=== PATIENT | female | born 1965 | race Caucasian/White ===

== ENCOUNTER 2024-01-25 11:21 | Outpatient (OUT) | payer OTHER, SELFPAY ==
--- NOTE | 2024-01-25 | XR_ITS ---
The [address] [address] Patient Name: TIM COSTA MRN: [id number] date: 1965 Sex: F Assigned Patient Location: [facility] Current Patient Location: [facility] Accession/Order Number: [id number] Exam Date: 01/25/2024 11:35 Report Date: 01/25/2024 11:58 At the request of: IRMA IQBAL Procedure: XR chest 2V EXAMINATION: XR ribs BI 3V, XR chest 2V HISTORY: RIB CONTUSION, RIGHT, INITIAL ENCOUNTER COMPARISON: No relevant comparison available. FINDINGS: LUNGS: No significant pulmonary parenchymal abnormalities. PLEURA: No pneumothorax, effusion, or pleural thickening. MEDIASTINUM: No visible mass or adenopathy. CARDIAC: No cardiomegaly or cardiac silhouette abnormality. RIBS: Normal. No significant arthropathy or acute abnormality. OTHER: Negative. XR/XR chest 2V IMPRESSION: 1. No acute cardiopulmonary process. 2. No appreciable right rib abnormality. Electronically authenticated by: OBDULIA MONTALVO Date: 01/25/2024 11:58
--- NOTE | 2024-01-25 | XR_ITS ---
The [address] [address] Patient Name: TIM COSTA MRN: [id number] date: 1965 Sex: F Assigned Patient Location: [facility] Current Patient Location: [facility] Accession/Order Number: [id number] Exam Date: 01/25/2024 11:35 Report Date: 01/25/2024 11:58 At the request of: IRMA IQBAL Procedure: XR ribs BI 3V EXAMINATION: XR ribs BI 3V, XR chest 2V HISTORY: RIB CONTUSION, RIGHT, INITIAL ENCOUNTER COMPARISON: No relevant comparison available. FINDINGS: LUNGS: No significant pulmonary parenchymal abnormalities. PLEURA: No pneumothorax, effusion, or pleural thickening. MEDIASTINUM: No visible mass or adenopathy. CARDIAC: No cardiomegaly or cardiac silhouette abnormality. RIBS: Normal. No significant arthropathy or acute abnormality. OTHER: Negative. XR/XR ribs BI 3V IMPRESSION: 1. No acute cardiopulmonary process. 2. No appreciable right rib abnormality. Electronically authenticated by: OBDULIA MONTALVO Date: 01/25/2024 11:58
== END 2024-01-25 11:22 | disposition home or self-care (01) ==
LOC: RAD 11:24
PROVIDERS: PCP Family Medicine; Visit Provider Family Medicine
DX: S20.211A Contusion of right front wall of thorax, initial encounter (principal)
CPT/HCPCS: 71046; 71110

== ENCOUNTER 2024-09-26 10:17 | Outpatient (OUT) | payer OTHER, SELFPAY ==
--- OUTSIDE RECORDS SUMMARY | 2024-01-25 06:45 | XMS_ITS ---
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 Ordering Physician: Irma Iqbal M.D. Date of Service: 01/25/24 Procedure(s): XR ribs BI 3V Accession Number(s): [id number] cc: Irma Iqbal M.D. [place] [address] Patient Name: CECILE HOPSON MRN: [id number] date: 1965 Sex: F Assigned Patient Location: RAD Current Patient Location: RAD Accession/Order Number: [id number] Exam Date: 01/25/2024 11:35 Report Date: 01/25/2024 11:58 At the request of: IRMA IQBAL Procedure: XR ribs BI 3V EXAMINATION: XR ribs BI 3V, XR chest 2V HISTORY: RIB CONTUSION, RIGHT, INITIAL ENCOUNTER COMPARISON: No relevant comparison available. FINDINGS: LUNGS: No significant pulmonary parenchymal abnormalities. PLEURA: No pneumothorax, effusion, or pleural thickening. MEDIASTINUM: No visible mass or adenopathy. CARDIAC: No cardiomegaly or cardiac silhouette abnormality. RIBS: Normal. No significant arthropathy or acute abnormality. OTHER: Negative. XR/XR ribs BI 3V IMPRESSION: 1. No acute cardiopulmonary process. 2. No appreciable right rib abnormality. Electronically authenticated by: RAUL ROSAS Date: 01/25/2024 11:58 Dictated By: Raul Rosas M.D. Signed By: 01/25/24 1201 DD/ 1158 TD/TT: Film Masker: [place] [address] XRay Report Signed Patient: CECILE HOPSON MR#: [id number] : 1965 Acct:[id number] Age/Sex: 58 / F ADM Date: 01/25/24 Loc: RAD Attending Dr: Irma Iqbal M.D. Ordering Physician: Irma Iqbal M.D. Date of Service: 01/25/24 Procedure(s): XR ribs BI 3V Accession Number(s): [id number] cc: Irma Iqbal M.D. The [place] [address] Patient Name: CECILE HOPSON MRN: [id number] date: 1965 Sex: F Assigned Patient Location: [facility] Current Patient Location: [facility] Accession/Order Numb er: [id number] Exam Date: 11:35 Report Date: 01/25/2024 11:58 At the request of: IRMA IQBAL Procedure: XR ribs BI 3V EXAMINATION: XR ribs BI 3V, XR chest 2V HISTORY: RIB CONTUSI ON, RIGHT, INITIAL ENCOUNTER COMPARISON: No relev ant comparison available. FINDINGS: LUNGS: No significan t pulmonary parenchymal abnormalities. PLEURA: No pneumotho rax, effusion, or pleural thickening. MEDIASTINUM: No visi ble mass or adenopathy. CARDIAC: No cardiome chica or cardiac silhouette abnormality. RIBS: Normal. No sig nificant arthropathy or acute abnormality. OTHER: Negative. X R/XR ribs BI 3V IMPRESSION: 1. No acute cardiopu lmonary process. 2. No appreciable ri ght rib abnormality. Electronically authe nticated by: RAUL ROSAS Date: 01/25/2024 11:58 Dictated By: Raul Rosas M.D. Signed By: 01/25/24 1201 DD/ 1158 TD/TT: Film Masker: REASON FOR VISIT Fell in bathtub 6 days ago. Initially had pain to right rib area. Pain started getting worse last night. Medications Medication SIG (Take, Route, Fr equency, Duration) Notes Start Date End Date Status Relpax 40 MG 1 tablet Orally Once a day for 1 day(s) Active Lisinopril 20 MG 1 tablet Orally Once a day for 30 days Active Adipex-P 37.5 MG 1 tablet before paulette kfast Orally Once a day for 30 days 01/25/2024 Active Social History Tobacco Use: Social History Observation Description Date Details (start date - stop date) Never Smoker NA - NA Tobacco Use/Smoking Question Answer Notes Patient is a nonsmoker AUDIT-C (Standard) Question Answer Notes Did you have a drink containing alcohol in the p ast year? No Points 0 Interpretation Negative Problems Problem Type SNOMED Code ICD Code Onset Dates Problem Status W/U Status Risk Notes Problem Contusion of chest (27575880) Rib contusion, right, initial encounter (S20.211A) Active confirmed Vital Signs Blood pressure systolic 138 mm Hg 01/25/20 24 Blood pressure diastolic 86 mm Hg 024 Height 67 in 01/25/2024 Weight 229.8 lbs 01/25/2024 BMI 35.99 kg/m2 01/25/2024 Encounters Encounter Location Date Provider Diagnosis [facility] [address] [place] [address] 01/25/2024 Jamshid Hoy Rib contusion, right , initial encounter S20.211A Assessments Encounter Date Diagnosis (ICD Code) Assessment Notes Treatment Notes Treatment Clinical Notes Section Notes 01/25/2024 Rib contusion, right, initial encounter (ICD-10 - S20.211A) Plan Of Treatment Medication Medication Name Sig Start Date Stop Date Notes Adipex-P 37.5 MG 1 tablet before paulette kfast Orally Once a day for 30 days 01/25/2024 Pending Test Test Name Order Date XR CHEST 2 V 01/25/2024 Progress Notes * Cecile HOPSON LDOB:1965 (58 yo F)Acc No.[id number]:01/25/2024 Progress Note Patient: Cecile VALDEZ Provider: Humberto Iqbal ([facility]), :1965 A ge:58 Y S ex:Female Date:01/25/2024 Address:[address] [place], [place] [id number] Check In:10:29 AM ESTCheck O ut:11:01 AM EST Subjective: * Chief Complaints: * F ell in bathtub 6 days ago. Initially had pain to right rib area. Pain started getting worse last night. * HPI: G eneral: fell 6 days ago - had pain at the [facility] better - but now is worse with laying on it. * ROS: E ENT: hearing changes d enies. v isual changes d enies.?non-healing mouth sores d enies. s wollen glands or neck lumps d enies. h oarseness d enies. s ore throat d enies. d ifficulty swallowing d enies. n ose bleeds d enies. n kathleen congestion d enies. e ar ache d enies. e ar discharge?denies. r inging in ears d enies. l ight sensitivity d enies. e ye pain d enies. b lurring d enies. e ye irritation d enies. d ouble vision d enies.?vision loss d enies. G eneral/Constitutional: Sweats: D enies. F atigue d enies. S leep problems d enies. A norexia d enies. M alaise d enies. W eight loss d enies.?Fatigue or Weakness d enies. F ever or Chills d enies. C ardiovascular: Shortness of Breath w/lying flat d enies. L ightheadedness/dizziness d enies. C hest tightness/ heavy pressure d enies. S welling of legs, ankles, or feet d enies. W aking up with shortness of breath d enies. C hest pain denies. P alpitations d enies. W eight gain d enies. R espiratory: Chronic or frequent cough d enies. C oughing up blood?denies. D ifficulty breathing d enies. P roductive cough d enies. S noring?denies. S hortness of breath that awakens from sleep (PND) d enies. C hest pain d enies. S putum production d enies. W heezing d enies. M usculoskeletal: Joint pain d enies. J oint Fluid d enies. B ack pain d enies. K nee pain d enies. N lara pain d enies. J oint Stiffness d enies. M uscle cramps d enies. W eakness of muscles d enies. A rthritis d enies. M uscle aches d enies. P ain in shoulder(s) d enies. S wollen joints d enies. * Active Problem List K57.90 Diverticulosis Modified On:05/31/2022 Status:confirmed E66.3 Over weight Modified On:05/31/2022 Status:confirmed G47.00 Insomnia, unspecifie d type Modified On:05/31/2022 Status:confirmed M23.92 Internal derangement of left knee Modified On:05/31/2022 Status:confirmed I10 Hypertension Modified On:05/31/2022 Status:confirmed R53.83 Fatigue Modified On:05/31/2022 Status:confirmed J45.909 Asthmatic bronchitis Modified On:05/31/2022 Status:confirmed J01.11 Acute recurrent fron kaitlyn sinusitis Modified On:05/31/2022 Status:confirmed Z00.00 Well adult Modified On:05/31/2022U Status:confirmed M25.559 Hip pain Modified On:05/31/2022 Status:confirmed F41.9 Anxiety Modified On:05/31/2022 Status:confirmed G43.909 Migraine Modified On:05/31/2022 Status:confirmed M50.30 Degenerative disc di sease, cervical Modified On:05/31/2022 Status:confirmed J18.9 Pneumonia Modified On:05/31/2022 Status:confirmed H81.399 Peripheral vertigo, unspecified laterality Modified On:05/31/2022 Status:confirmed S20.211A Rib contusion, right , initial encounter Modified On:01/25/2024 Status:confirmed * Medical History: * Surgical History: C olonoscopy 03/26/2022 * Hospitalization/Major Diagno stic Procedure: * Family History: F ather: , diagnosed with Chronic kidney disease, unspecified. M other: , passed Mar 2022, diagnosed with Colon cancer. B rother(s): alive. 1 brother(s) . . * Social History: T obacco Use: T obacco Use/Smoking P atient is a n onsmoker D rug/Alcohol: A NATHANAEL-C (Standard) D id you have a drink containing alcohol in the past year? N o P oints 0 I nterpretation N egative * Medications: T akingAdipex-P(Phentermine HCl) 37.5 MG Tablet 1 tablet before breakfast Orally Once a day Lisinopril 20 MG Tablet 1 tablet Orally Once a day Relpax(Eletriptan Hydrobromide) 40 MG Tablet 1 tablet Orally Once a day Taking Adipex- P(Phentermine HCl) 37.5 MG Tablet 1 tablet before breakfast Orally Once a day Taking Lisinopril 20 MG Tablet 1 tablet Orally Once a day Taking Relpax(Eletriptan Hydrobromide) 40 MG Tablet 1 tablet Orally Once a day DiscontinuedAdipex-P(Phentermine HCl) 37.5 MG Tablet 1 tablet before breakfast Orally Once a day traMADol HCl 50 MG Tablet take 1 -2 tablets Orally QID-PRN , Notes to Pharmacist: Orally dx M50.30Medication List reviewed and reconciled with the patientDiscontinued Adipex-P(Phentermine HCl) 37.5 MG Tablet 1 tablet before breakfast Orally Once a day Discontinued traMADol HCl 50 MG Tablet take 1 -2 tablets Orally QID-PRN , Notes to Pharmacist: Orally dx M50.30Medication List reviewed and reconciled with the patient * Allergies: A spirin: jemma[Allergies Verified] Objective: * Vitals: W t:229.8lbs, Ht: 67 in, BP:138/86mm Hg, BMI:35.99Index, Ht-cm: 170.18 cm, Wt-k.24 kg. * Examination: P hysical Exam: GENERAL: w ell developed, well nourished, in no acute distress. HEAD: n ormocephalic/atraumatic. EYES: p upils equal, round and reactive to light, conjunctivae and sclerae normal. EARS: n o deformity or lesion of external ear, canals and TM appear normal bilaterally, TM's intact, not inflamed with normal light reflex, hearing grossly normal to conversational speech. NOSE: n o deformity, discharge, inflammation, or lesions.? MOUTH: m ucous membranes moist, normal oropharynx and posterior pharynx without lesions or exudates, tongue normal, dentition normal. NECK: n lara supple, no masses or palpable cervical nodes, trachea midline, thyroid without nodules, masses, tenderness, or enlargement. CHEST: n o chest wall deformity, no chest wall tenderness.? LUNGS: n ormal respiratory effort and clear to auscultation, no wheezes, rales, or rhonchi, good air exchange. CARDIO: r egular rate and rhythm, normal S1 and S2, nor murmur, rub, or gallop. PULSES: n ormal capillary refill. ABDOMEN: s oft, non-distended, non-tender, no masses. MUSCULOSKELETAL: n o deformity or scoliosis noted, normal range of motion, joints normal, no erythema, edema, effusion, or ecchymosis. EXTREMITY: n o clubbing, cyanosis, edema, or deformity with normal ROM in both upper and lower bilateral extremities. NEUROLOGIC: g rossly normal. SKIN: n o rashes, ulcerations, or suspicious lesions. LYMPH NODES: n o cervical adenopathy, nodes normal. MENTAL STATUS: a lert and oriented x3, normal mood and affect. Assessment: * Assessment: 1. R ib contusion, right, initial encounter - S20.A (Primary) Plan: * Treatment: ?Imaging: XR ribs BI 3V (Performed Date - 01/25/2024)* STAT * Procedure Codes: * Preventive Medicine: Screenings/Counseling: B RI ACTION PLAN Above Normal BMI Follow-up D ietary management education, guidance, and counseling See treatment section of progress note for complete details of management plan. * * Sign off status: Completed Visit Status: C HK (Check Out) true * Provider: Humberto Iqbal ([facility])MD Date: 03/27/2023 Generated for Printi ng/Faxing/eTransmitting on: 0 09/26/2024 10:21 AM EDT History and Physical Notes * HPI (History of Present Illness) Category Sub-Category Detail Notes Category Not es General fell 6 days ago - had pain at the [facility] better - but now is worse with laying on it Examination Category Sub-Category Detail Notes Category Not es Physical Exam GENERAL: well developed, well nourished, in no acute distress HEAD: normocephalic/atraum atic EYES: pupils equal, round and reactive to light, conjunctivae and sclerae normal EARS: no deformity or lesi on of external ear, canals and TM appear normal bilaterally, TM's intact, not inflamed with normal light reflex, hearing grossly normal to conversational speech NOSE: no deformity, discha rge, inflammation, or lesions MOUTH: mucous membranes rigoberto st, normal oropharynx and posterior pharynx without lesions or exudates, tongue normal, dentition normal NECK: neck supple, no mass es or palpable cervical nodes, trachea midline, thyroid without nodules, masses, tenderness, or enlargement CHEST: no chest wall deform ity, no chest wall tenderness LUNGS: normal respiratory e ffort and clear to auscultation, no wheezes, rales, or rhonchi, good air exchange CARDIO: regular rate and rhy thm, normal S1 and S2, nor murmur, rub, or gallop PULSES: normal capillary ref ill ABDOMEN: soft, non-distended, non-tender, no masses RECTAL: MUSCULOSKELETAL: no deformity or scol iosis noted, normal range of motion, joints normal, no erythema, edema, effusion, or ecchymosis EXTREMITY: no clubbing, cyanosi s, edema, or deformity with normal ROM in both upper and lower bilateral extremities NEUROLOGIC: grossly normal SKIN: no rashes, ulceratio ns, or suspicious lesions LYMPH NODES: no cervical adenopat hy, nodes normal MENTAL STATUS: alert and oriented x 3, normal mood and affect
--- OUTSIDE RECORDS SUMMARY | 2024-09-26 05:30 | XMS_ITS ---
Author Organization The [facility] in [place] Address [address] [place] [address] Care Team Providers Care Video Tape Editor Name Role Phone Jamshid Ontiveros Primary Care Provider [phone] Allergies Allergen (clinical drug ingredient) Drug/Non Drug Allergy documented on EMR Reaction Allergy Type Onset Date Status aspirin Aspirin vomiting Drug Allergy Active REASON FOR VISIT Presents to office with for wellness for work, Also asking to restart Adipex Medications Medication SIG (Take, Route, Fr equency, Duration) Notes Start Date End Date Status Relpax 40 MG 1 tablet Orally Once a day for 1 day(s) Active Lisinopril 20 MG 1 tablet Orally Once a day for 30 days Active Adipex-P 37.5 MG 1 tablet before paulette kfast Orally Once a day for 30 days 01/25/2024 No t-Taking Adipex-P 37.5 MG 1 tablet before paulette kfast Orally Once a day 09/26/2024 Active Social History Tobacco Use: Social History [...] Problem Status W/U Status Risk Notes Problem Obesity (E66.9) Active confirmed Vital Signs Blood pressure systolic 144 mm Hg 09/27/19 25 Blood pressure diastolic 86 mm Hg 025 Height 67 in 09/26/2024 Weight 219 lbs 09/26/2024 BMI 34.3 kg/m2 09/26/2024 Encounters Encounter Location Date Provider Diagnosis [facility] [address] [facility] [place] [address] 09/26/2024 Jamshid Ontiveros Well adult Z00.00 an d Obesity E66.9 Assessments Encounter Date Diagnosis (ICD Code) Assessment Notes Treatment Notes Treatment Clinical Notes Section Notes 09/26/2024 Well adult (ICD-10 - Z00.00) 09/26/2024 Obesity (ICD-10 - E66.9) Plan Of Treatment Medication Medication Name Sig Start Date Stop Date Notes Adipex-P 37.5 MG 1 tablet before paulette kfast Orally Once a day 09/26/2024 Pending Test Test Name Order Date HEMOGLOBIN A1C (GLYCO) 09/26/2024 IRON, TOTAL 09/26/2024 LIPID PANEL (CHOL/TRIG/HDL/LDL) 09/27/19 25 Insulin Level 09/26/2024 THYROID PANEL (T4/TSH/FREE T3) 5 MM screening mammo BI 09/26/2024 CMP (COMP MET VALENCIA) w/eGFR CKD-EPI 2024 CBC WITH DIFF 09/26/2024 Progress Notes * Cecile HOPSON LDOB:1965 (58 yo F)Acc No.[id number]:09/26/2024 UNLOCKED PROGRESS NOTE Progress Note Patient: Cecile VALDEZ Provider: Humberto Ontiveros ([facility])MD :1965 A ge:58 Y S ex:Female Date:09/26/2024 Address:[address] [place], [place] [id number] Check In:09:28 AM ESTCheck O ut:10:06 AM EST Subjective: * Chief Complaints: * 1 . Presents to office with for wellness for work. 2. Also asking to restart Adipex. * HPI: D epression Screening: PHQ-2 (2015 Edition) L ittle interest or pleasure in doing things??Not at all F eeling down, depressed, or hopeless? N ot at all T otal Score 0 disucsed need for weight loss - wiilling to try the adipex. * ROS: E ENT: hearing changes d [...] enies. S wollen joints d enies. * Medical History: D iverticulosis, Over weight, Insomnia, unspecified type, Internal derangement of left knee, Hypertension, Fatigue, Asthmatic bronchitis, Acute recurrent frontal sinusitis, Well adult, Hip pain, Anxiety, Migraine, Degenerative disc disease, cervical, Pneumonia, Peripheral vertigo, unspecified laterality. * Surgical History: C olonoscopy 03/26/2022. * Family History: F ather: , diagnosed [...] I nterpretation N egative * Medications: T aking Lisinopril 20 MG Tablet 1 tablet Orally Once a day , Taking Relpax(Eletriptan Hydrobromide) 40 MG Tablet 1 tablet Orally Once a day , Not-Taking/PRN Adipex-P(Phentermine HCl) 37.5 MG Tablet 1 tablet before breakfast Orally Once a day , Medication List reviewed and reconciled with the patient * Allergies: A spirin: vomiting. Objective: * Vitals: W t:219lbs, Ht: 67 in, BP:144/86mm Hg, BMI:34.3Index, Ht-cm: 170.18 cm, Wt-k.34 kg. * Examination: P hysical Exam: GENERAL: [...] mood and affect. Assessment: * Assessment: 1. W ell adult - Z00.00 (Primary) 2 . O besity - E66.9 Plan: * Treatment: 2. O besity Start Adipex-P Tablet, 37.5 MG, 1 tablet before breakfast, Orally, Once a day, 30. * Preventive Medicine: Screenings/Counseling: B MA ACTION PLAN Above Normal BMI Follow-up D ietary management education, guidance, and counseling See treatment section of progress note for complete details of management plan. * * Electronic signature of Jamshid Ontiveros MD, [phone] on 09/26/2024 at 10:21 AM EDT Sign off status: Pending Visit Status: C HK (Check Out) * Provider: Humberto Ontiveros ([facility])MD Date: 09/26/2024 Generated for Josselyn brannon/Judie/eTransmitting on: 0 09/26/2024 10:21 AM EDT History and Physical Notes * HPI (History of Present Illness) Category Sub-Category Detail Notes Category Not es Depression Screening PHQ-2 (2015 Edition) Little interest or pleasure in doing things?: Not at all disucsed need for weight loss - wiilling to try the adipex Feeling down, depressed, or hopeless?: N ot at all Total Score: 0 Examination Category Sub-Category Detail Notes Category Not [...]
--- OUTSIDE RECORDS SUMMARY | 2024-09-26 10:21 | XMS_ITS | Clinical Summary ---
Author Organization [email or web address] [facility] tem Address [id number] [address] [place] [address] Care Team Providers Care Commodity Buyer Name Role Phone Naren Ontiveros MD Primary Care Provider [phone] Allergies Active Allergy Reactions Criticality Noted Date Comments Aspirin Vomiting 12/26/2016 Medications traMADol (ULTRAM) 50 mg tablet Take 1 tablet (50 mg total) by mouth every 6 (six) hours as needed for pain. Active pantoprazole (PROTONIX) 40 mg EC tablet Take 1 tablet (40 mg total) by mouth in the morning. Active zolpidem (AMBIEN) 10 mg tablet Take 1 tablet (10 mg total) by mouth nightly as needed for sleep. Active diclofenac (VOLTAREN) 75 mg EC tablet Take 1 tablet (75 mg total) by mouth in the morning and 1 tablet (75 mg total) before bedtime. Active phentermine 37.5 MG capsule Take 1 capsule (37.5 mg total) by mouth every morning. Takes 1/2 tablet daily Active doxepin (SINEquan) 10 mg capsule Take 2 capsules (20 mg total) by mouth nightly. Active lisinopriL (PRINIVIL,ZESTRIL) 10 mg tablet Take 1 tablet (10 mg total) by mouth in the morning. Active metoclopramide (REGLAN) 10 mg tablet Take 1 tablet (10 mg total) by mouth every 6 (six) hours as needed (nausea). 30 tablet 3 Active ondansetron ODT (ZOFRAN ODT) 4 mg disintegrating tablet Dissolve 1 tablet (4 mg total) on tongue every 8 (eight) hours as needed for nausea for up to 25 doses. 25 tablet Active Social History Tobacco Use Types Packs/Day Years Used Date Smoking Tobacco: Never Smokeless Tobacco: Never Tobacco Cessation:Counseling Given: Not Answered Alcohol Use Standard Drinks/Week Comments No 0 (1 standard drink = 0.6 oz pur e alcohol) Childcare Answer Date Recorded Childcare Unknown 08/04/2018 Employment Answer Date Recorded Employment Unknown 08/04/2018 Hunger Screening Answer Date Recorded Within the past 12 months we worried whether our food would run out before we got money to buy more. Never True 06/01/2022 Within the past 12 months th e food we bought just didn't last and we didn't have money to get more. Never True 06/01/2022 Purpose - Life Answer Date Recorded Purpose and direction in life Unknown Comments No Sex and Gender Information Value Date Recorded Sex Assigned at Not on file Legal Sex Female 11:24 AM EDT Gender Identity Not on file Sexual Orientation Not on file Last Filed Vital Signs Vital Sign Reading Time Taken Comments Blood Pressure 176/105 06/01/2022 6:29 PM EDT Pulse 84 06/01/2022 6:29 PM EDT Temperature 36.6 C (97.9 F) 06/01/2022 6:29 PM EDT Respiratory Rate 20 06/01/2022 6:29 PM EDT Oxygen Saturation 100% 06/01/2022 6:29 PM EDT Inhaled Oxygen Concentration - - Weight 106.6 kg (235 lb) 06/01/2022 6:29 PM EDT Height 165.1 cm (5' 5 ) 06/01/2022 6:29 PM EDT Body Mass Index 39.11 06/01/2022 6:29 PM EDT Plan of Treatment Health Maintenance Due Date Last Done Comments Depression Screening 1978 Tobacco Screening 1978 DTaP,Tdap and Td Vaccines (1 - Tdap) 1985 Pap Smear 11/14/1987 Zoster (Shingles) Vaccine (1 of 2) 2016 Adult BMI Screening 06/02/2023 06/01/2022 COVID-19 Vaccine (3 - season) 10/25/202302/2020, 12/10/2020 Influenza Vaccine 10/24/2024 Medical Devices Not on file Insurance [employer] PPO Care Teams Commodity Buyer Relationship Specialty Start Date End Date Naren Ontiveros MD PCP - General 12/26/16
--- OUTSIDE RECORDS SUMMARY | 2024-09-26 10:21 | XMS_ITS | Patient Health Record ---
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 Ordering Physician: Irma Iqbal M.D. Date of Service: 01/25/24 Procedure(s): XR chest 2V Accession Number(s): [id number] cc: Irma Iqbal M.D. [place] [id number] Patient Name: CECILE HOPSON MRN: [id number] date: 1965 Sex: F Assigned Patient Location: RAD Current Patient Location: RAD Accession/Order Number: [id number] Exam Date: 01/25/2024 11:35 Report Date: 01/25/2024 11:58 At the request of: IRMA IQBAL Procedure: XR chest 2V EXAMINATION: XR ribs BI 3V, XR chest 2V HISTORY: RIB CONTUSION, RIGHT, INITIAL ENCOUNTER COMPARISON: No relevant comparison available. FINDINGS: LUNGS: No significant pulmonary parenchymal abnormalities. PLEURA: No pneumothorax, effusion, or pleural thickening. MEDIASTINUM: No visible mass or adenopathy. CARDIAC: No cardiomegaly or cardiac silhouette abnormality. RIBS: Normal. No significant arthropathy or acute abnormality. OTHER: Negative. XR/XR chest 2V IMPRESSION: 1. No acute cardiopulmonary process. 2. No appreciable right rib abnormality. Electronically authenticated by: OBDULIA ROSAS Date: 01/25/2024 11:58 Dictated By: Obdulia Rosas M.D. Signed By: 01/25/24 1201 DD/ 1158 TD/TT: Child Nurse: [place] [address] XRay Report Signed Patient: CECILE HOPSON MR#: [id number] : 1965 Acct:[id number] Age/Sex: 58 / F ADM Date: 01/25/24 Loc: RAD Attending Dr: Irma Iqbal M.D. Ordering Physician: Irma Iqbal M.D. Date of Service: 01/25/24 Procedure(s): XR chest 2V Accession Number(s): [id number] cc: Irma Iqbal M.D. [place] [address] Patient Name: CECILE HOPSON MRN: [id number] date: 1965 Sex: F Assigned Patient Location: [facility] Current Patient Location: [facility] Accession/Order Numb er: [id number] Exam Date: 11:35 Report Date: 01/25/2024 11:58 At the request of: IRMA IQBAL Procedure: XR chest 2V EXAMINATION: XR ribs BI 3V, XR chest [...] or acute abnormality. OTHER: Negative. X R/XR chest 2V IMPRESSION: 1. No acute cardiopu lmonary process. 2. No appreciable ri ght rib abnormality. Electronically authe nticated by: OBDULIA ROSAS Date: 01/25/2024 11:58 Dictated By: Obdulia Rosas M.D. Signed By: 01/25/24 1201 DD/ 1158 TD/TT: Child Nurse: XR ribs BI 3V Reviewed date:01/25/2024 01:46:08 PM Interpretation: Performing Lab: Notes/Report: Source Facility: [place] [address] XRay Report Signed Patient: CECILE HOPSON MR#: [id number] : 1965 Acct:[id number] Age/Sex: 58 / F ADM Date: 01/25/24 Loc: RAD Attending Dr: Irma Iqbal M.D. Ordering Physician: Irma Iqbal M.D. Date of Service: 01/25/24 Procedure(s): XR ribs BI 3V Accession Number(s): [id number] cc: Irma Iqbal M.D. [place] [address] Patient Name: CECILE HOPSON MRN: [id number] date: 1965 Sex: F Assigned Patient Location: [facility] Current Patient Location: [facility] Accession/Order Number: [id number] Exam Date: 01/25/2024 11:35 Report Date: 01/25/2024 [...] appreciable right rib abnormality. Electronically authenticated by: OBDULIA ROSAS Date: 01/25/2024 11:58 Dictated By: Obdulia Rosas M.D. Signed By: 01/25/24 1201 DD/ 1158 TD/TT: Child Nurse: [place] [address] XRay Report Signed Patient: CECILE HOPSON MR#: [id number] : 1965 Acct:[id number] Age/Sex: 58 / F ADM Date: 01/25/24 Loc: RAD Attending Dr: Irma Iqbal M.D. Ordering Physician: Irma Iqbal M.D. Date of Service: 01/25/24 Procedure(s): XR ribs BI 3V Accession Number(s): [id number] cc: Irma Iqbal M.D. [place] [id number] Patient Name: CECILE HOPSON MRN: [id number] date: 1965 Sex: F Assigned Patient Location: [facility] Current Patient Location: [facility] Accession/Order Numb er: [id number] Exam Date: 11:35 Report Date: 01/25/2024 11:58 [...] ght rib abnormality. Electronically authe nticated by: OBDULIA ROSAS Date: 01/25/2024 11:58 Dictated By: Obdulia Rosas M.D. Signed By: 01/25/24 1201 DD/ 1158 TD/TT: Child Nurse: Reason For Referral No Information Medications Medication SIG (Take, Route, Fr equency, [...] Question Answer Notes Patient is a nonsmoker Alcohol Screen (Audit-C) Question Answer Notes Did you have a drink containing alcohol in the p ast year? No Points 0 Interpretation Negative AUDIT-C (Standard) Question Answer Notes Did you have a drink containing alcohol in the p ast year? No Points 0 Interpretation Negative Problems Problem Type SNOMED Code ICD Code Onset Dates Problem Status W/U Status Risk Notes Problem Acute frontal sinusitis (92104581) Acute recurrent frontal sinusitis (J01.11) Active confirmed Problem Fatigue (41608054) Fatigue (R53.83) Active conf irmed Problem Hypertension (67336093) Hypertension (I10) Active confirmed Problem Obesity (826354693) Obesity (E66.9) Active conf irmed Problem Anxiety (49443363) Anxiety (F41.9) Active confi rmed Problem Pneumonia (486449288) Pneumonia (J18.9) Active confirmed Problem Hip pain (87017768) Hip pain (M25.559) Active confirmed Problem 854268358 Diverticulosis (K57.90) Active confirmed Problem Migraine (20895752) Migraine (G43.909) Active confirmed Problem Degeneration of cervical intervertebral disc (53690029) Degenerative disc disease, cervical (M50.30) Active confirmed Problem Well adult (536783972) Well adult (Z00.00) Active confirmed Problem 009339787 Over weight (E66.3) Active confirmed Problem Asthmatic bronchitis (981287524) Asthmatic bronchitis (J45.909) Active confirmed Problem 00754137975814828 Internal derangement of left knee (M23.92) Active confirmed Problem 113021038 Insomnia, unspecified type (G47.00) Active confirmed Problem Contusion of chest (96507062) Rib contusion, right, initial encounter (S20.211A) Active confirmed Problem Peripheral vertigo (24388802) Peripheral vertigo, unspecified laterality (H81.399) Active confirmed Vital Signs Blood pressure diastolic 86 mm Hg 09/26/2024 Height 67 in 09/26/2024 Blood pressure systolic 144 mm Hg 09/26/2024 Weight 219 lbs 09/26/2024 BMI 34.3 kg/m2 09/26/2024 Encounters Encounter Location Date Provider Diagnosis [address] [address] 01/25/2024 Jamshid Hoy [address] [address] 11/23/2023 Jamshid Hoy Internal derangement of left knee M23.92 and Hypertension I10 [address] [address] 01/25/2024 Jamshid Hoy Rib contusion, right , initial encounter S20.211A [address] [address] 09/26/2024 Jamshid Hoy Well adult Z00.00 an d Obesity E66.[address] [address] 10/02/2023 Jamshid Hoy Well adult Z00.00 Assessments Encounter Date Diagnosis (ICD Code) Assessment Notes Treatment Notes Treatment Clinical Notes Section Notes 10/02/2023 Well adult (ICD-10 - Z00.00) 11/23/2023 Internal derangement of left knee (ICD-10 - M23.92) 11/23/2023 Hypertension (ICD-10 - I10) 01/25/2024 Rib contusion, right, initial encounter (ICD-10 - S20.211A) 09/26/2024 Well adult (ICD-10 - Z00.00) 09/26/2024 Obesity (ICD-10 - E66.9) Plan Of Treatment Pending Test Test Name Order Date CMP (COMPLETE METABOLIC PANEL) 4 HEMOGLOBIN A1C (GLYCO) 10/02/2023 HEMOGLOBIN A1C (GLYCO) 09/26/2024 IRON, TOTAL 09/26/2024 IRON, TOTAL 10/02/2023 LIPID PANEL (CHOL/TRIG/HDL/LDL) 10/02/19 24 LIPID PANEL (CHOL/TRIG/HDL/LDL) 09/27/19 25 CBC WITH DIFF 10/02/2023 VITAMIN D, 25 LEVEL (TOTAL) 10/02/2023 Insulin Level 09/26/2024 Insulin Level 10/02/2023 XR CHEST 2 V 01/25/2024 THYROID PANEL (T4/TSH/FREE T3) 5 THYROID PANEL (T4/TSH/FREE T3) 4 MM screening mammo BI 10/02/2023 MM screening mammo BI 09/26/2024 CMP (COMP MET VALENCIA) w/eGFR CKD-EPI 2024 CBC WITH DIFF 09/26/2024 Insurance Providers Payer Name Payer Address Payer Phone Subscriber Number Group Number Insured Name Patient Relationship to Insured Coverage Start Date Coverage End Date [employer] [facility] [address] [place] [phone] [id number] Cecile Hopson Self - patient is the insured 2023 Medical (General) History Medical History History ICD Code Diverticulosis K57.90 Over weight E66.3 Insomnia, unspecified type G47.00 Internal derangement of left knee M23.92 Hypertension I10 Fatigue R53.83 Asthmatic bronchitis J45.909 Acute recurrent frontal sinusitis J01.11 Well adult Z00.00 Hip pain M25.559 Anxiety F41.9 Migraine G43.909 Degenerative disc disease, cervical M50. 30 Pneumonia J18.9 Peripheral vertigo, unspecified laterali ty H81.399 Surgical History Surgery Date(Month/Year) Colonoscopy 03/26/2022
--- OUTSIDE RECORDS SUMMARY | 2024-09-26 10:30 | XMS_ITS | CCD ---
Author Organization [facility] Care Team Providers Care Director Clinical Operations Name Role Phone Irma Ontiveros Primary Care Physician Melanie PAL Attending Unavailable Weston PROVIDER, Irma Referring Unavailabl e NILL, Melanie Marcelo Attending Unavailable Didiy PROVIDER, Irma Referring Unavailabl e NILL, Melanie Marcelo Attending Unavailable NILL, DR NAVARRO Admitting Unavailable NILL, DR NAVARRO Consulting Unavailable NILL, DR NAVARRO Attending Unavailable HOY, DR SOLIS Primary Care Unavailable EVIE JARAMILLO Consulting Unavailable ANNA ROSENTHAL Consulting Unavailable NILL, DR NAVARRO Admitting Unavailable NILL, DR NAVARRO Consulting Unavailable NILL, DR NAVARRO Attending Unavailable HOY, DR SOLIS Primary Care Unavailable HOY, DR SOLIS Admitting Unavailable HOY, DR SOLIS Primary Care Unavailable DIDIY, DR SOLIS Attending Unavailable JI BELLO Consulting Unavailable WESTON, DR SOLIS Primary Care Unavailable QUITA WARD Admitting Unavailable SYLVIA, QUITA Attending Unavailable QUITA WARD Consulting Unavailable MEENAKSHI MARTINEZ Consulting Unavailable Allergies Allergy Classification Reported Allergen(s) Allergy Type Date of Onset Reaction(s) Facility (2 sources) Aspirin; Translations: [aspirin] Drug Allergy Vomiting (disorder) [facility] [place] (2 sources) Dexamethasone; Translations: [dexamethasone] Drug Allergy Unknown [facility] [place] (1 source) Aspirin Drug Allergy [facility] (1 source) Dexamethasone Drug Allergy [facility] Medications Current Medications Medication Drug Class(es) Dates Sig (Normalized) Sig (Original) diclofenac sodium 75 mg delayed release oral tablet (1 source) Nonsteroidal Anti-inflammatory Drug Start: 02-28-2022 take 1 tablet by mouth twice daily diclofenac sodium 75 mg Oral EC Tab 75 mg = 1 tab(s), Oral, BID, Refills(s) 0 Start Date: 02/28/22 Status: Ordered doxepin hydrochloride 10 mg oral capsule (1 source) Tricyclic Antidepressant Start: 02-28-2022 take 1 capsule by mouth once daily at bedtime doxepin 10 mg Cap 10 mg = 1 cap(s), Oral, Once a day (at bedtime), Refills(s) 0 Start Date: 02/28/22 Status: Ordered eletriptan 40 mg oral tablet (1 source) Serotonin-1b and Serotonin-1d Receptor Agonist Start: 02-28-2022 take 1 tablet by mouth once Relpax 40 mg Tab 40 mg = 1 tab(s), Oral, Once, Refills(s) 0 Start Date: 02/28/22 Status: Ordered hydrocortisone 25 mg/ml rectal cream (1 source) Corticosteroid Start: 02-28-2022 hydrocortisone 2.5% Rectal Crm w/Appl 1 abdullahi, Rectal, BID, Refill(s) 0 Start Date: 02/28/22 Status: Ordered lisinopril 20 mg oral tablet (1 source) Angiotensin Converting Enzyme Inhibitor Start: 02-28-2022 take 1 tablet by mouth once daily lisinopril 20 mg Tab 20 mg = 1 tab(s), Oral, Daily, Refills(s) 0 Start Date: 02/28/22 Status: Ordered traMADol hydrochloride 50 mg oral tablet (1 source) Opioid Agonist Start: 02-28-2022 take 1-2 tablets by mouth four times daily Ultram 50 mg Tab 1-2 tab(s), Oral, QID, Refills(s) 0 Start Date: 02/28/22 Status: Ordered zolpidem tartrate 10 mg oral tablet (1 source) gamma-Aminobutyric Acid-ergic Agonist Start: 02-28-2022 take 1 tablet by mouth once daily at bedtime as needed for sleep Ambien 10 mg Tab 10 mg = 1 tab(s), Oral, Once a day (at bedtime), PRN for sleep, Refills(s) 0 Start Date: 02/28/22 Status: Ordered Problems Active Problems Problem Classification Problem Date Documented Da te Episodic/Chronic Anxiety disorders (1 source) Anxiety 02-28-2022 Chronic Diverticulosis and diverticulitis (1 source) Diverticulosis of large intestine without perforation or abscess without bleeding; Translations: [DVRTCLOS LG INT NO PERF/ABSC W/O BL] Onset: 03-27-2022 Chronic Essential hypertension (1 source) Essential (primary) hypertension; Translations: [ESSENTIAL PRIMARY HYPERTENSION] Onset: 03-27-2022 Chronic Gastrointestinal hemorrhage (6 sources) Hemorrhage of rectum and anus; Translations: [Hemorrhage of anus and rectum] Onset: 03-04-2022 Episodic Headache; including migraine (1 source) Migraine 02-28-2022 Chronic Other nutritional; endocrine; and metabolic disorders (2 sources) Body mass index 40+ - severely obese; Translations: [Body mass index (BMI) 40.0-44.9, adult] Onset: 03-04-2022 Chronic Other nutritional; endocrine; and metabolic disorders (1 source) Obesity, unspecified; Translations: [OBESITY UNSPECIFIED] Onset: 03-27-2022 Chronic Other nutritional; endocrine; and metabolic disorders (1 source) Body mass index (BMI) 40.0-44.9, adult; Translations: [BODY MASS INDEX BMI 40.0-44.9 ADULT] Onset: 03-27-2022 Chronic Other nutritional; endocrine; and metabolic disorders (1 source) Morbid (severe) obesity due to excess calories; Translations: [MORBID SEVERE OBES D/T EXCESS SASHA] Onset: 10-29-2021 Chronic Other nutritional; endocrine; and metabolic disorders (1 source) Body mass index (BMI) 36.0-36.9, adult; Translations: [BODY MASS INDEX BMI 36.0-36.9 ADULT] Onset: 10-29-2021 Chronic Residual codes; unclassified (1 source) Insomnia 02-28-2022 Episodic Residual codes; unclassified (1 source) Family history of malignant neoplasm of digestive organs; Translations: [FAM HX MALIG NEOPLASM DIGESTIV ORGN] Onset: 03-27-2022 Episodic Residual codes; unclassified (1 source) Acquired absence of other specified parts of digestive tract; Translations: [ACQ ABSENCE OTH PART DIGESTV TRACT] Onset: 03-27-2022 Episodic Spondylosis; intervertebral disc disorders; other back problems (1 source) Cervical disc disorder 02-28-2022 Chronic Unclassified (1 source) CONTACT W/AND (SUSP) EXPOS COVID-19; Translations: [CONTACT W/AND (SUSP) EXPOS COVID-19] Onset: 03-24-2022 Past or Other Problems Problem Classification Problem Date Documented Da te Episodic/Chronic Other aftercare (1 source) 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; Translations: [OTH MCC CURRENT DRUG THERAPY] Onset: 10-29-2021 Episodic Other non-traumatic joint disorders (4 sources) Pain in left knee; Translations: [PAIN IN LEFT KNEE] Onset: 10-28-2021 Episodic Sprains and strains (1 source) Sprain of unspecified site of left knee, initial encounter; Translations: [SPRAIN UNS SITE LT KNEE INITIAL] Onset: 10-29-2021 Episodic Results Test Name Value Interpretation Reference Range Facil ity Outside Colonoscopyon 2022 Outside Colonoscopy [id number] #1.00CD:127 Normal [facility] Reminderson 03-27-2022 Reminders - From: Shanika Meade LPN To: N - Clinical; Sent: 03/27/2022 12:54:58 EST Show up: 02/24/2032 07:00:00 EST Subject: colonoscopy recall Due Date/Time: 03/26/2032 07:00:00 EST Reminder/Recall Patient is due for screening colonoscopy 03/26/2032. Normal [facility] Covid-19 PCR (CVDTB)on 02-24 SARS-CoV-2 (COVID-19) RNA AVELINO+probe Ql (Unsp spec) Not detected Normal NOT DETECTED [facility] Comment on above: Result Comment: This test is not yet approved or cleared by the [place] FDA. When there are no FDA-approved or cleared tests available, and other criteria are met, FDA can make tests available under an emergency access mechanism called an Emergency Use Authorization (EUA). The EUA for this test is supported by the Director Pharmacy Services of Health and Human Service's (HHS's) declaration that circumstances exist to justify the emergency use of in vitro diagnostics for the detection and/or diagnosis of the virus that causes COVID-19. This EUA will remain in effect (meaning this test can be used) for the duration of the COVID-19 declaration justifying emergency of IVDs, unless it is terminated or revoked by FDA (after which the test may no longer be used). When diagnostic testing is negative, the possibility of a false negative should be considered in the context of a patient's recent exposures and the presence of clinical signs and symptoms consistent with SARS-CoV-2. Performed By: #### [facility] #### [facility] [address] [place] [address] Dr. Lola Hernandez Pre-Certification Formon Pre-Certification Form [id number] #1.00CD:127 Normal [facility] Consent for Procedure/Surger yon 03-06-2022 Consent for Procedure/Surgery [id number] #1.00CD:127 Normal [facility] Facesheeton 03-06-2022 Facesheet [id number] #1.00CD:127 Normal [facility] Provider Letteron 02-18-2022 Provider Letter February 18, 2022 TIM COSTA [address] [place] [address] TIM COSTA 1965 Dear Ms. Costa, We have been trying to reach you with no success regarding a consultation referral from Dr Ontiveros. It is important that you return our call at your earliest convenience. Also, at the time of your call, please provide us with your current demographic and insurance information. Thank you for your prompt attention to this matter. Sincerely, [facility] General Surgery [phone] Normal [facility] Physician Referralon Physician Referral [id number] #1.00CD:127 Normal [facility] XR KNEE LT 4V or >on XR KNEE LT 4V or > EXAM: XR KNEE LT 4V or > HISTORY: Pain COMPARISON: X-ray 08/20/2020 TECHNIQUE: 5 views FINDINGS: No osseous lesion, fracture, dislocation or subluxation. Joint spaces are normal. Small osteophytes off the articular surfaces. No visualized effusion. No visualized soft tissue edema. IMPRESSION: Mild age-related and weight related changes Obesity versus morbid obesity Electronically authenticated by: MEENAKSHI MARTINEZ Date: 2021-10-28 15:[address] [facility] Vital Signs Date Time Vital Sign Value Performing Clinician Faci jeffy 03-04-2022 13:30-0500 Blood Pressure Location Melanie PAL [facility] [place] 03-04-2022 13:30-0500 Diastolic blood pressure 86 mm[Hg] Melanie PAL [facility] 03-04-2022 13:30-0500 Heart rate 76 /min Melanie WINNL [facility] 03-04-2022 13:30-0500 Respiratory rate 16 /min Melanie PAL [facility] 03-04-2022 13:30-0500 Systolic blood pressure 126 mm[Hg] Melanie PAL [facility] Encounters Encounter Date Encounter Type Care Provider Facility Start: 03-26-2022 End: 03-27-2022 ambulatory Melanie PAL Facility:CD:[id number] Start: 03-24-2022 Encounter for preprocedural laboratory examination DR MELANIE PAL [facility] Start: 03-22-2022 End: 03-23-[address] MELANIE PAL Facility: Start: 03-22-2022 End: 03-23-2022 Encounter for preprocedural laboratory examination DR MELANIE PAL Facility: Start: 03-04-2022 End: 03-05-2022 ambulatory Melanie PAL Facility:[facility] Start: 03-04-2022 End: 03-04-2022 Patient encounter procedure Melanie PAL General Surgery [facility] Start: 02-07-2022 ambulatory Melanie PAL Facility :[facility] Start: 10-28-2021 End: 10-28-2021 ambulatory JI BELLO Facility:[facility] Start: 05-06-[address] IRMA ONTIVEROS Facility :[facility] Procedures Date Procedure Procedure Detail Performing Clinician Appendectomy Melanie PAL Arthroscopy of shoulder Jc aemartha PAL Cholecystectomy Melanie PAL Tonsillectomy Melanie PAL Transcervical sterilization Melanie PAL Immunizations Immunization Date Immunization Notes Care Provider Fa cility 12-10-2020 SARS-CoV-2 (COVID-19 ) mRNA BNT-162b2 vax Melanie PAL [facility] Comment on above: Result Comment: 2022: [id number] NEGATED: Highlighted row has not occurred!03-04-2022 influenza virus vaccine, unspecified formulation Melanie PAL [facility] Payers Date Payer Category Payer Unknown [id number] 2.16.8 [id number] 1965 Unknown [id number] 2.16.8 [id number] 1965 Unknown [id number] 2.16.8 [id number] 1965 Unknown [id number] 2.16.84 [id number] 1965 Unknown [id number] 2.16.84 [id number] 1965 Unknown [id number] 2.16.84 [id number] 1965 Unknown [id number] 2.16.84 [id number] 1958 Private Health Insurance [id number] Social History Date Type Detail Facility Start: 03-04-2022 Tobacco smoking status Never s moked tobacco (finding) [facility] Tobacco smoking status Never [facility] Sex Assigned At Female [facility] Functional Status Date Assessment Result Facility 03-04-2022 Functional Status N/A [facility] [place] Clinical Note 03-26-2022 Note Date & Type Note Facility 03-26-2022 Note OPERATIVE NOTE OPERATION DATE: 03/26/2022 PREOPERATIVE DIAGNOSIS: Intermittent rectal bleeding. POSTOPERATIVE DIAGNOSIS: Sigmoid diverticulosis as well as prominent rectal veins. PROCEDURE: Colonoscopy to cecum. SURGEON: Melanie Pal M.D. ANESTHESIA: Monitored anesthesia care. ESTIMATED BLOOD LOSS: Zero. INDICATIONS AND CONSENT: Patient is a 56-year-old female with history of intermittent rectal bleeding. Indications, risks, benefits, alternatives of proceeding with colonoscopy were explained extensively to the patient, including the risks of bleeding, colon perforation or anesthetic complications. All of her questions were answered. Informed consent was obtained. PROCEDURE: Patient brought to the operating room, placed in the left lateral decubitus position. Monitored anesthesia care was provided. Rectal exam was performed which showed no masses or blood. The scope was inserted into the anal canal. Under direct visualization was advanced. It was advanced to the cecum where cecal markings were clearly identified. Upon withdrawal of the scope, mucosal surfaces were carefully examined. There were no mass lesions or polyps. No inflammatory changes or ulcerations. There was moderate sigmoid diverticulosis without inflammatory changes or scarring. The scope was retroflexed in the anal canal. There were noted to be some prominent rectal veins. No significant hemorrhoidal disease. No old or new blood. The scope was then withdrawn. Patient tolerated procedure well, was sent to recovery room in good condition. Follow up colonoscopy for screening should be in 10 years. CC: Irma Ontiveros M.D. [facility] Clinical Note 03-04-2022 Note Date & Type Note Facility 03-04-2022 Note Chief Complaint consultation for rectal bleeding HPI Staff 56 year old female presents on consultation for rectal bleeding. Reports intermittent bright red blood with wiping after bowel movement over the past several weeks. Denies change in bowel habits. Denies rectal or abdominal pain. No unexplained weight loss Never had colonoscopy in the past. Paternal aunt with colon cancer, diagnosed age late 40's or early 50's. History of Present Illness 56 yo female with h/o htn, migraines, cervical disc disease, anxiety; referred for several month h/o intermittent rectal bleeding; patient reports BRBPR on toilet paper after bm, no change in bms or blood in stools, no abdominal complaints; no hemorrhoid prolapse; no previous colonoscopy; abd operations significant for appendectomy, open cholecystectomy and ovarian cystectomy; on Diclofenac daily, no asa; no SBE prophylaxis; no tobacco use; fmhx of colon cancer in maternal Aunt; dx in her 50's; no fmhx of IBD. Review of Systems PHQ Score Initial Depression Screen Score: 0 ROS - Provider Constitutional: no fever, no sweats, no weight loss. Eyes: no glasses, no blurred vision, no visual loss. ENMT: no dentures, no hoarseness, no swallowing difficulties, no hearing loss, no ear infection(s), no nose bleeds. Cardiovascular: normal blood pressure, no chest pain, regular heartbeat, no heart murmur. Respiratory: no shortness of breath, no cough, no asthma, no wheezing. Gastrointestinal: no nausea, no vomiting, no diarrhea, no constipation, no blood in stool, no change in bowel habits, no abdominal pain, no hepatitis. Genitourinary: no kidney stones, no urine infection, no dysuria. Musculoskeletal: no pain, no weakness. Skin: no changing moles, no rash, no skin lumps. Neurologic: no seizures, no epilepsy, no headache. Psychiatric: no emotional or psychiatric problem. Heme/Lymph: no bleeding problems, no anemia, no blood clots, no transfusions. Allergy/Immunologic: no swollen lymph nodes/glands, no IV drug abuse. Other: Additional ROS info: Except as noted in the above Review of Systems and in the History of Present Illness, all other systems have been reviewed and are negative or noncontributory. Physical Exam Vitals & Measurements HR: 76(Peripheral) RR: 16 BP: 126/86 HT: 65 in HT: 165 cm WT: 112.9 kg WT: 248.38 lb BMI: 41.47 HEENT: normal conjunctiva, sclera clear, no scleral icterus, EOM intact, PERRLA, oral mucosa moist without lesions. Neck: trachea midline, no mass, symmetric, no thyromegaly or nodules, no adenopathy Respiratory: lungs CTA, respirations non labored. Cardiovascular: regular rate and rhythm, no murmur, no pedal edema or varicosities. Gastrointestinal: obese, soft, non distended, no tenderness, no masses, no palpable hernias, diastasis recti no, no hepatosplenomegaly; normal bs Lymphatic: no cervical adenopathy, Musculoskeletal: normal gait, digits and nails without infection, nodes, cyanosis, clubbing. Skin: no rashes, no lesions, no ulcers, no subcutaneous nodules, induration. Psychiatric/Neuro: oriented to time, place, person, judgement normal, affect appropriate for age, insight intact, no focal deficits. Tests: review of old records completed, Discussed surgical options, risks, and possible complications with patient. Assessment/Plan 1. Rectal bleeding (K62.5: Hemorrhage of anus and rectum) plan colonoscopy under anesthesia, informed consent obtained. 2. BMI 40.0-44.9, adult (Z68.41: Body mass index [BMI] 40.0-44.9, adult) recommend diet and exercise. Follow-up No qualifying data available Problem List/Past Medical History Ongoing Anxiety BMI 40.0-44.9, adult Cervical disc disease Insomnia Migraines Rectal bleeding Historical No qualifying data Procedure/Surgical History Appendectomy, Arthroscopy of shoulder, Cholecystectomy, Essure., Tonsillectomy. Medications Ambien 10 mg Tab, 10 mg= 1 tab(s), Oral, Once a day (at bedtime), PRN diclofenac sodium 75 mg Oral EC Tab, 75 mg= 1 tab(s), Oral, BID doxepin 10 mg Cap, 10 mg= 1 cap(s), Oral, Once a day (at bedtime) hydrocortisone 2.5% Rectal Crm w/Appl, 1 abdullahi, Rectal, BID lisinopril 20 mg Tab, 20 mg= 1 tab(s), Oral, Daily Relpax 40 mg Tab, 40 mg= 1 tab(s), Oral, Once Ultram 50 mg Tab, 1-2 tab(s), Oral, QID Allergies aspirin (Vomiting) dexamethasone (Unknown) Social History Alcohol - Denies Alcohol Use, 03/04/2022 Substance Abuse Current, Marijuana, Daily, 03/04/2022 Tobacco Never (less than 100 in lifetime) Tobacco Use:. Never Smokeless Tobacco Use:., 03/04/2022 Family History COPD: Mother. Heart disease: Father. Primary malignant neoplasm of skin: Mother and Father. [facility] Comment on above: Result Comment: Elec tronically Signed By: DANA MORALES, Melanie R\.br\Date and Time Signed: 03/04/22 14:07 EST Evaluation + Plan note Note Date & Type Note Facility Evaluation + Plan note No data available for this section [facility] Discharge instructions Note Date & Type Note Facility Hospital Discharge instructions No data available for this section [facility] Progress note Note Date & Type Note Facility Progress note No data available for this section [facility] Summary Purpose Family History No Family History Records FoundNo Family History Records Found Advance Directives No Advanced Directives Records FoundNo Advanced Directives Records Found Additional Source Comments Patient Care team informatio n (unrecognized section and content) Personnel Name: Irma Ontiveros MD Address: Address: [address] [place] [address] INFORMATION SOURCE (unrecogn ized section and content) DATE CREATED AUTHOR 04/08/2022 [facility] DATE CREATED AUTHOR AUTHOR'S ORGANIZ ATION 04/11/2022 [facility] FOR RECORDS PERTAINING TO PATIENTS WHO ARE OR HAVE BEEN ENROLLED IN A CHEMICAL DEPENDENCY/SUBSTANCEABUSE PROGRAM, SOME INFORMATION MAY BE OMITTED. This clinical summary was aggregated from multiple sources. Caution should be exercised in using it in the provision of clinical care. This summary normalizes information from multiple sources, and as a consequence, information in this document may materially change the coding, format and clinical context of patient data. In addition, data may be omitted in some cases. CLINICAL DECISIONS SHOULD BE BASED ON THE PRIMARY CLINICAL RECORDS. [facility] [employer] provides no warranty or guarantee of the accuracy or completeness of information in this document.
[2024-09-26 10:59] LABS: Hematocrit 39.6 % (36.0-48.0); Hemoglobin 13.0 g/dL (12.0-16.0); Immature Granulocytes Abs Auto 0.00 10^3/uL (0.00-0.03); Immature Granulocytes Pct Auto 0.0 % (0.0-0.5); Lymphocytes Absolute Auto 1.4 10^3/uL (1.2-3.8); Mean Corpuscular HGB Conc 32.8 g/dL (29.9-35.2); Mean Corpuscular Hemoglobin 29.5 pg (26.7-34.0); Mean Corpuscular Volume 89.8 fL (81.0-99.0); Platelet Count 246 10^3/uL (150-450); Red Blood Count 4.41 10^6/uL (4.20-5.40); White Blood Count 4.3 10^3/uL (4.0-11.0)
[2024-09-26 11:19] LABS: Alanine Aminotransferase 28 U/L (14-59); Albumin Globulin Ratio 1.1; Albumin Level 3.8 g/dL (3.4-5.0); Alkaline Phosphatase 92 U/L (46-116); Anion Gap 12.1; Aspartate Amino Transferase 15 U/L (15-37); Blood Urea Nitrogen 17.0 mg/dL (7.0-18.0); Calcium 9.6 mg/dL (8.5-10.1); Carbon Dioxide 28.3 mmol/L (21.0-32.0); Chloride 103 mmol/L (98-107); Cholesterol 203 mg/dL (<=200); Estimated GFR (African America >60 (>=60 mL/min/1.73m^2); Estimated GFR (Non-African Ame >60 (>=60 mL/min/1.73m^2); Free T3 2.16 pg/mL (2.18-3.98); Globulin 3.4 g/dL; Glucose 97 mg/dL (74-106); HDL Cholesterol 66 mg/dL (40-60); Iron 76.0 ug/dL (50.0-170.0); Potassium 4.4 mmol/L (3.5-5.1); Sodium 139 mmol/L (136-145); Thyroid Stimulating Hormone 2.369 uIU/mL (0.358-3.740); Total Protein 7.2 g/dL (6.4-8.2); Triglycerides 70 mg/dL (<=150); VLDL CHOLESTEROL 14.0 mg/dL
== END 2024-09-26 10:18 | disposition home or self-care (01) ==
LOC: LAB 10:19
PROVIDERS: PCP Family Medicine; Visit Provider Family Medicine
DX: Z00.00 Encounter for general adult medical examination without abnormal findings (principal)
CPT/HCPCS: 36415; 80053; 80061; 83036; 83525; 83540; 84436; 84443; 84481; 85025